=== PATIENT | male | born 1950 | race African-American/Black ===

== ENCOUNTER 2016-10-24 08:05 | Emergency (ER) | payer OTHER ==
[~2016-10-24] VITALS: Ht 172.7 cm; Wt 146.6 kg
[~2016-10-24 08:05] MED LIST: ALBUAER19 INH; ASPI81TA28 PO; ATEN50TA8 PO; ATOR-22 PO; CIPR-255 PO; CLOB-65 TOP; CLR10 PO; FINA5TAB PO; INSDGI SC; LISI40TA PO; METF-384 PO; NITROQUICK SL; NORT10CA2 PO; PHEN37.585 PO; PRLSR20 PO; SUMA25TA PO; SYMIN160 INH; TAMS0.4C38 PO; TERA5CAP PO
[2016-10-24 08:09] VITALS: TEMP 36.5; O2SAT 96; Ht 172.7 cm; Wt 146.6 kg
[2016-10-24] MEDS ORDERED: INSDGIPEN SC (08:30)
[2016-10-24] MEDS ORDERED: VNTHFA/IN INH (08:30)
[2016-10-24] MEDS ORDERED: LOSA50TA6 PO (08:30)
[2016-10-24] MEDS ORDERED: NEOMYCIN/POLYMYX/HYDROCORT OT SOLN 10 ML BTL OT ONE (09:00)
--- NOTE | 2016-10-24 09:01 | EMERGENCY ROOM VISIT NOTE ---
History Report prepared by Mc: Pat Cheng Under the Supervision of: Dr. Rick Omalley M.D. First contact with patient: 08:28 Chief Complaint: SINUS CONGESTION/PRESSURE Stated Complaint: FACIAL SWELLING, NASAL CONGESTION Nursing Triage Summary: per physicist astrophysics: pt c/o facial swelling, nose swelling, sinus congestion, and swelling to face (around ears.) pt denies mayte trouble swallowing/SOB. pt went to urgent care and was told he had a sinus congestion. pt was given antibiotics with no relief. swelling has worsened. History of Present Illness The patient is a 66 year old male who presents to the Emergency Room with complaints of worsening sinus congestion starting a couple days ago. He reports sinus pressure and swelling around his ears. Yesterday, he went to urgent care and received Azithromycin. He took 2 pills yesterday. This morning he had increased facial swelling and congestion. He reports intermittent fevers, coughing, and sneezing. He has difficulty breathing because of the congestion. He is having a lot of mucous from his nose. His face is painful due to the swelling. He denies any chills or abdominal pain. He has a history of hypertension. Source of History: patient Onset: couple days ago Position: other (sinus) Quality: other (congestion) Timing: worsening Associated Symptoms: + fevers, + cough, No chills, No abdominal pain Note: Pt reports sinus pressure, swelling around ears, swelling around face, sneezing. Review of Systems All systems have been listed, reviewed, and are negative other than those previously mentioned. Please see Additional Medical History Sheet. Past Medical & Surgical Medical Problems: (1) Asthma (2) Diabetes (3) Hypertension (4) MGUS (monoclonal gammopathy of unknown significance) Family History Diabetes mellitus Heart disease Hypertension Social History Smoking Status: Never Smoker Marital Status: Housing Status: lives with family Occupation Status: retired Current/Historical Medications Scheduled Atenolol (Tenormin), 50 MG PO QPM Atorvastatin (Lipitor), 20 MG PO HS Budesonide/Formoterol Fumarate (Symbicort 160/4.5 Inhaler), 2 PUFFS INH BID Insulin Glargine (Lantus Solostar), 30 UNITS SC QPM Loratadine (Claritin), 10 MG PO QAM Losartan Potassium (Cozaar), 50 MG PO DAILY Metformin Hcl (Glucophage), 1,000 MG PO BID Nortriptyline (Pamelor), 20 MG PO HS Omeprazole (Prilosec), 20 MG PO QAM Scheduled PRN Albuterol Hfa (Ventolin Hfa), 2-4 PUFFS INH Q6H PRN for Shortness of Breath Allergies Coded Allergies: Aspirin (Verified Allergy, Unknown, LARGE AMTS-HYPERACTIVIE, 12/15/14) CI Pigment Blue 63 (Verified Allergy, Unknown, JONES, AGGRESSION, 12/15/14) Duloxetine (Verified Allergy, Unknown, JONES, AGGRESSION, 12/15/14) Penicillins (Verified Allergy, Unknown, UNKNOWN-MOTHER ALLERGIC TO IT- DOESN'T TAKE, 12/15/14) Physical Exam Vital Signs Date Time Temp Pulse Resp B/P (MAP) Pulse Ox O2 Delivery O2 Flow Rate FiO2 10/24/16 09:05 88 16 127/81 10/24/16 08:15 95 Room Air 10/24/16 08:09 36.5 70 24 144/72 96 Room Air Physical Exam GENERAL: Patient awake, alert, oriented x 3. Patient follows commands. Patient does not appear toxic. Patient is adequately hydrated and well- nourished. SKIN: No erythema, pallor, cyanosis or rash HEENT: Normal head, pupils equal, reactive to light and accommodation. Pressure on palpation over maxillary and frontal sinus. Erythema and swelling in the right external canal. Oral cavity and posterior pharynx appear normal. Neck: Without adenopathy, no neck vein distention. LUNGS: Clear to auscultation. No wheezes, no rales, no rhonchi. HEART: No murmurs. No gallops. No rubs ABDOMEN: Obese, soft, nontender. EXTREMITIES: No signs of trauma or infection. NEUROLOGIC: Cranial nerves II-XII within normal limits. No gross motor sensory function deficits. Medical Decision & Procedures Medications Administered Medications (Trade) Dose Ordered Sig/Swapnil Route Start Time Stop Time Status Last Admin Dose Admin Neomycin/ Polymyxin/ Hydrocortisone (Cortisporin Otic Soln) 3 drops NOW ONCE OT 10/24/16 09:00 10/24/16 09:01 DC 10/24/16 09:00 3 DROPS ED Course 0830: Past medical records reviewed. The patient was evaluated in room A2. A complete history and physical examination was performed. 0840: I discussed today's findings with him and his . They verbalized agreement of the treatment plan. He was discharged home. 0900: Cortisporin Otic Soln 3 drops OT. Medical Decision Nurses notes reviewed. Medical history sheet reviewed. Differential diagnosis includes but is not limited to: sinusitis bacterial/viral, otitis externa, otitis media, medication reaction. 66-year-old male with sinus congestion was placed on azithromycin 1 day ago. He now complains of more swelling in his face pressure in his sinuses and pressure in his right ear. Examination is consistent with sinusitis and some external otitis on the right. The patient's blood pressure is under control and therefore he will be allowed to use Sudafed. He will continue azithromycin. He was given eardrops here which she will continue at home. Medication Reconcilliation Current Medication List: was personally reviewed by me Blood Pressure Screening Patient's blood pressure: Normal blood pressure Impression Primary Impression: Acute sinusitis Additional Impression: Right otitis externa Scribe Attestation The scribe's documentation has been prepared under my direction and personally reviewed by me in its entirety. I confirm that the note above accurately reflects all work, treatment, procedures, and medical decision making performed by me. Departure Information Dispostion Home / Self-Care Referrals No Doctor, Assigned (PCP) Patient Instructions ED Sinusitis Tameka Alexander [facility] Additional Instructions 60 mg of Sudafed every 6 hours as needed for sinus congestion. 3 drops of Cortisporin otic in your right ear 3 times a day. Continue all of your current medications as prescribed. Hot showers with steam will help to open up her sinuses. Follow-up with your family physician or return here in one week if symptoms are not resolving. Problem Qualifiers
[2016-10-24 09:05] VITALS: BP 127/81; PULSE 88
== END 2016-10-24 09:05 | disposition home or self-care (01) ==
LOC: C.EDB 08:07 → C.EDA 09:05
DX: J01.90 Acute sinusitis, unspecified (principal); H60.91 Unspecified otitis externa, right ear; I10 Essential (primary) hypertension; J45.909 Unspecified asthma, uncomplicated; E11.9 Type 2 diabetes mellitus without complications; D47.2 Monoclonal gammopathy; Z83.3 Family history of diabetes mellitus; Z82.49 Family history of ischemic heart disease and other diseases of the circulatory system; Z79.4 Long term (current) use of insulin; Z79.899 Other long term (current) drug therapy